=== PATIENT | male | born 1945 | race Caucasian/White ===

== ENCOUNTER 2021-07-08 13:30 | Emergency (ER) | payer SELFPAY ==
[~2021-07-08] VITALS: Ht 170.2 cm; Wt 77.2 kg
[2021-07-08] MEDS ORDERED: HYDROCO/APAP1 TA9 PO (14:20)
[2021-07-08] MEDS ORDERED: PREDNISONE50 MG PO (14:20)
[2021-07-08 14:22] VITALS: BP 138/72
[2021-07-08 14:30] VITALS: BP 142/73
[2021-07-08 14:45] VITALS: BP 133/70
[2021-07-08] MEDS ORDERED: ASPIRIN LOW DOS81 M1 PO (14:45)
[2021-07-08] MEDS ORDERED: CRESTOR20 MG PO (14:45)
[2021-07-08] MEDS ORDERED: NORVASC5 M1 PO (14:45)
[2021-07-08 15:10] VITALS: BP 133/70
== END 2021-07-08 15:10 | disposition home or self-care (01) | DRG 552 ==
LOC: ED 13:30
DX: M54.50 Low back pain, unspecified (principal); I10 Essential (primary) hypertension; Z85.46 Personal history of malignant neoplasm of prostate; Z95.1 Presence of aortocoronary bypass graft

== ENCOUNTER 2021-07-16 07:57 | Emergency (ER) | payer SELFPAY ==
[~2021-07-16] VITALS: Ht 170.2 cm; Wt 90.0 kg
[~2021-07-16 07:57] MED LIST: ASPIRIN LOW DOS81 M1 PO; CRESTOR20 MG PO; HYDROCO/APAP1 TA9 PO; NORVASC5 M1 PO; PREDNISONE50 MG PO
[2021-07-16 08:05] VITALS: BP 134/80
[2021-07-16 08:15] VITALS: BP 135/70
[2021-07-16] MEDS ORDERED: LORTAB 1010 MG PO (08:27)
[2021-07-16] MEDS ORDERED: TORADOL PO (08:27)
[2021-07-16] MEDS ORDERED: FLEXERIL5 M1 PO (08:27)
[2021-07-16 08:30] VITALS: BP 150/84
[2021-07-16 08:44] VITALS: BP 150/84
== END 2021-07-16 08:46 | disposition home or self-care (01) | DRG 948 ==
LOC: ED 07:57
DX: G89.3 Neoplasm related pain (acute) (chronic) (principal); C41.2 Malignant neoplasm of vertebral column; I10 Essential (primary) hypertension